=== PATIENT | male | born 1960 | race Caucasian/White ===

== ENCOUNTER 2023-03-21 06:31 | Inpatient (IN) | payer OTHER ==
[2023-03-21] VITALS (481 sets, daily range): BP systolic 113–141; BP diastolic 71–99; PULSE 82–97; TEMP 97.5–98.2; O2SAT 89–100
[~2023-03-21] VITALS: Ht 177.8 cm; Wt 55.6 kg
--- NOTE | 2023-03-21 09:12 | NUR ---
PT TO THE UNIT AT 0912 FROM [facility]. ALERT AND ORIENTED. IN NO ACUTE DISTRESS. ON BIPAP TOLERATION WELL. TWO PERIPHERAL IVS NOTED TO RIGHT FOREARM AND LEFT AC. PT IS PLACED ON ICU MONITORING. VSS. SWABBED FOR COVID-19. PT DENIES ANY CONCERNS ON NEEDS. EDUCATION GIVEN OPERATIONS ADMINISTRATIVE ASSISTANT LIGHT AND VISITING POLICY. HOSPITALIST NOTIFIED OF PATIENTS ARRIVAL.
[2023-03-21 09:57] LABS: ARTERIAL BLD GAS O2 SATURATION 97.8 % (92-100); ARTERIAL BLD GAS TCO2 CT 21.3; ARTERIAL BLOOD GAS BASE EXCESS -3.6 (-2-2); ARTERIAL BLOOD GAS HCO3 20.3 meq/L (22-26); ARTERIAL BLOOD GAS PCO2 33.7 mmHg (35-45); ARTERIAL BLOOD GAS PO2 86.6 mmHg (80-100)
[2023-03-21] MEDS ORDERED: BREZTRI AEROS10.7 GM IH (17:04)
[2023-03-21] MEDS ORDERED: PROAIR HFA0.09 MG/AC IH (17:05)
[2023-03-22] VITALS (1085 sets, daily range): BP systolic 106–124; BP diastolic 62–83; PULSE 65–86; TEMP 97.6–98.1; O2SAT 77–100
--- NOTE | 2023-03-22 01:15 | NUR ---
PT CALLED AND REPORTED 7-8/10 CHEST PAIN RADIATING TO RIGHT SIDE OF CHEST, AND REPORTED THAT HE WAS WHEEZING. NOTIFED ANGEL ABOUT THIS AND POSSIBLE ST ELEVATION IN PTS EKG. ALSO NOTIFIED RT. RT AND ANGEL CAME UP TO SEE PT, GOT AN EKG, BREATHING TREATMENT, AND ALSO GAVE HIM MORPHINE, NITRO, AND ASPRIN.TROPONIN AND CHEST XRAY ORDERED BY ANGEL. PT VITALS WNL. PLAN OF CARE ONGOING.
[2023-03-22 02:26] LABS: ALBUMIN 3.4 gm/dL (3.4-4.8); BILIRUBIN,TOTAL 0.9 mg/dL (0.2-1.2); CALCIUM 8.8 mg/dL (8.4-10.2); CREATININE, serum 0.78 mg/dL (0.72-1.25); TOTAL PROTEIN 6.1 gm/dL (6.2-8.1)
--- NOTE | 2023-03-22 02:28 | NUR ---
227 - PT STARTED GETTING VERY AGITATED AND SHORT OF BREATH WITH FEELINGS OF IMPENDING DOOM. PT STATED HE REFUSED TO WEAR THE BIPAP ANY LONGER AND TOOK IT OFF HIMSELF. DURING THIS TIME HIS O2 SATS DROPPED LOW 70%. HIS FACE WAS TURNING BLUE AND HE WAS REPEATING THAT HE COULD NOT BREATH. ANGEL AND RT WERE CALLED IMMEDIATELY. ANGEL CALLED OVER ER DR ORDOÑEZ TO PERFORM A CHEST TUBE DUE TO "RAPID DETERIORATION". CONSENT WAS SIGNED BY PT. ANGEL ASSISTED TIAGO WITH INSERTION OF CHEST TUBE. RT, ANESTHESIA, MYSELF, RNEETTA RUIZ, AND ASHU ESPINO RN WERE ALL IN ROOM ASSISTING. TIME OUT WAS 246- CHEST TUBE WAS PLACED BY DR ORDOÑEZ AND A CHEST XRAY WAS OBTAINED TO VERIFY PLACEMENT AT 308. DR ORDOÑEZ THEN LEFT ICU BEFORE CONNECTING CHEST TUBE TO SUCTION WELL DRESSING THE INSERTION SITE. MYSELF, MIGUEL RUIZ, AND RENETTA RUIZ ATTEMPTED TO CONNECTING THE CHEST TUBE TO SUCTION, UNSUCCESSFUL. WHEN ATTEMPTING TO CONNECT THE SUCTION THE PT FELT EXTREME PAIN AND SUCTON WAS DISCONNECTED IMMEDIATELY DUE TO THIS. ANGEL WAS THEN NOTIFIED AGAIN REGARDING THE CHEST TUBE/SUCTION. HE ADVISED SURGERY TO BE CONTACTED AT THIS POINT TO FURTHER ASSESS. DR GLASER ARRIVED AND ASSESSED THE CHEST TUBE, AND WAS ABLE TO FINISH THE PROCEDURE. PT NOW RESTING IN BED SATURATION AT 100% WHILE ON 2L OXYMASK. VITALS WNL. PLAN OF CARE ONGOING.
[2023-03-22 04:15] LABS: HEMATOCRIT 42.4 % (42.0-52.0); HEMOGLOBIN 14.9 g/dl (13.5-18.0); MEAN CELL VOLUME 97 fl (80.0-100.0); MEAN CORPUSCULAR HEMOGLOBIN 34 pg (27-31); MEAN CORPUSCULAR HGB CONC 35 g/dl (33.0-37.0); MEAN PLATELET VOLUME 10.4 fl (7.4-10.4); PLATELET COUNT 174 K/mm3 (130-400); RED BLOOD COUNT 4.37 M/mm3 (4.20-5.60)
[2023-03-22 04:39] LABS: CALCIUM 8.8 mg/dL (8.4-10.2); CREATININE, serum 0.82 mg/dL (0.72-1.25); POTASSIUM 4.4 mmol/L (3.5-4.5)
[2023-03-22 05:00] LABS: BAND 3 % (0-10); LYMPHOCYTE 1 % (20.0-51.0); NEUTROPHILS 94 % (42.0-75.2); PLATELET ESTIMATE NORMAL (NORMAL)
[2023-03-22 05:52] LABS: ARTERIAL BLD GAS O2 SATURATION 94.3 % (92-100); ARTERIAL BLD GAS TCO2 CT 19.3; ARTERIAL BLOOD GAS BASE EXCESS -2.8 (-2-2); ARTERIAL BLOOD GAS HCO3 20.9 meq/L (22-26); ARTERIAL BLOOD GAS PCO2 33.4 mmHg (35-45); ARTERIAL BLOOD GAS PO2 70.4 mmHg (80-100); ARTERIAL BLOOD GAS pH 7.41 (7.35-7.45)
--- NOTE | 2023-03-22 07:10 | NUR ---
BEDSIDE REPORT RECEIVED FROM SARA GLEASON. RIGHT CHEST TUBE IN PLACE AND TO SUCTION; NO BUBBLING PRESENT IN ATRIUM, MINIMAL TIDALING WITH DEEP BREATH AND COUGH. PT REPORTS MINIMAL PAIN AT THIS TIME; DOES NOT WANT ANYTHING FOR PAIN. VITAL SIGNS STABLE. PT ALERT AND ORIENTED AND OFFERS NO COMPLAINTS.
--- NOTE | 2023-03-22 08:36 | NUR ---
Pt taken to CT for CT Chest w/ contrast; accompanied by this nurse and photo specialist. Pt remained stable throughout scan. Pt returned to room at 0845. Pt c/o pain at chest tube site rated 7/10. PRN morphine and tylenol to be given.
[2023-03-22 10:24] LABS: CHOLESTEROL RISK RATIO 1.7
[2023-03-22 10:29] LABS: TROPONIN-I 0.647 ng/mL (0.00-0.033)
[2023-03-22] MEDS ORDERED: LEADER EYE ITCH5 ML OP (11:17)
--- NOTE | 2023-03-22 11:54 | NUR ---
PAPER GLUING OPERATOR reviewed pt's clinical record and noted he was initally admitted for SOB. PAPER GLUING OPERATOR met with pt @ his bedside this morning to complete intake. Pt appeared frail, but he was oriented to person, time, place and situation. He reports he lives with his daughter, Mehreen Solis in [place]. 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 Pt states his daughter is his HCPOA, and she can be reached @ # [phone]. Pt, an army explained his HCPOA was implemented at the [place], and he has a copy @ [place]. When asked the name of his VA provider, he stated he couldn't remember, explaining he sees a different one every time he goes in for an appt. Pt states the [place] pays for his meds and he fills them @ [facility]. Pt also has a h/o alcohol use, admitting he drinks 4-8 beers almost daily. He denies h/o DT's, blackouts and DWI's. He denies using any street drugs. Pt stated he has never participated in any [facility] tx programs, stating he drinks beer to relax. Pt anticipates he will be discharge home once he is medically clear. Pt's daughter will provide transportation.
--- NOTE | 2023-03-22 12:57 | NUR ---
Pt assisted with washing hair and body, changing gown, and putting on brief and sweatpants. Pt was able to do majority of ADL's; this nurse just assisted providing supplies and set-up. Pt assisted to toilet to have BM and void; then assisted to recliner to sit up and eat lunch. Pt tolerated all activities well and vitals remained WNL.
--- NOTE | 2023-03-22 14:05 | NUR ---
Pulmonary Rehab Note: Met with patient at bedside to discuss outpatient pulmonary rehab program. Patient meets criteria with qualifying diagnosis of COPD. Discussed program goals, session lengths, insurance coverage, meeting with respiratory therapist and fabrics and material cutter, exercise, and education provided. Patient is interested, however, he works 70+ hours per week as a local [employer] ([employer] Discussed COPD zones and when to call the doctor and/or 911/ER. Plan to follow up with patient Saturday or will call when he discharges. Phone number verified: [phone].
[2023-03-22 16:50] LABS: PROTHROMBIN TIME 10.7 SECONDS (9.7-12.8)
[2023-03-22 20:50] LABS: COLLECTION METHOD CLEAN CATCH
[2023-03-22 21:02] LABS: PH 6.5 (5.0-8.5); URINE APPEARANCE Clear (CLEAR/HAZY); URINE BLOOD Negative (NEGATIVE); URINE COLOR Yellow (YELLOW); URINE GLUCOSE Negative (NEGATIVE); URINE KETONE 2+ (NEGATIVE); URINE NITRATE Negative (NEGATIVE); URINE PROTEIN(semi-quant) Negative (NEGATIVE); URINE UROBILINOGEN 0.2 E.U/dL (0.2-1.0)
[2023-03-22 21:15] LABS: SQUAMOUS EPITHELIAL 0-2 /hpf (0-10); URINE RBC 0-2 /hpf (0-2); URINE WBC 0-2 /hpf (0-2)
[2023-03-22 21:35] LABS: TRICYCLIC ANTIDEPRESS URINE NEGATIVE
[2023-03-23] VITALS (702 sets, daily range): BP systolic 103–155; BP diastolic 63–94; PULSE 62–107; TEMP 97.9–98.4; O2SAT 77–100
[2023-03-23 04:46] LABS: HEMATOCRIT 37.5 % (42.0-52.0); HEMOGLOBIN 13.3 g/dl (13.5-18.0); MEAN CELL VOLUME 95 fl (80.0-100.0); MEAN CORPUSCULAR HEMOGLOBIN 34 pg (27-31); MEAN CORPUSCULAR HGB CONC 36 g/dl (33.0-37.0); MEAN PLATELET VOLUME 10.3 fl (7.4-10.4); PLATELET COUNT 147 K/mm3 (130-400); RED BLOOD COUNT 3.93 M/mm3 (4.20-5.60); REDCELL DISTRIBUTION WIDTH-CV 12.8 % (11.5-14.5)
--- NOTE | 2023-03-23 05:00 | NUR ---
PT HAS HAD UNEVENTFUL NIGHT. ABLE TO SLEEP SOME. PT PLACED ON O2 1L VIA NASAL CANULA FOR SLEEP. CHEST TUBE INTACT TO R SIDE, SET TO 20MMHG SUCTION, WATER SEAL. SCANT RED TINGED DRAINAGE. LUNG SOUNDS DIMINISHED EQUALLY BILATERALY, PT REPORTS BREATHING WELL. SOME DYSPNEA NOTED WITH EXERTION OF GETTING UP TO USE TOILET IN ROOM. PT REPORTS HAVING A LOOSE STOOL THIS SHIFT, HAS HAPPENED AT HOME RECENTLY WELL. NO C/O PAIN.
[2023-03-23 05:31] LABS: CALCIUM 8.1 mg/dL (8.4-10.2); CREATININE, serum 0.75 mg/dL (0.72-1.25)
[2023-03-23 06:26] LABS: BAND 5 % (0-10); NEUTROPHILS 93 % (42.0-75.2); PLATELET ESTIMATE NORMAL (NORMAL)
--- NOTE | 2023-03-23 08:37 | NUR ---
PT STABLE ON ROUNDS. NO SIGN OF DISTRESS. DENIES NEEDS AT THIS TIME.
--- NOTE | 2023-03-23 10:18 | NUR ---
Hosiery Looper AM Rounds: Hosiery Looper visit attempted; Doctor was with Patient.
--- NOTE | 2023-03-23 12:30 | NUR ---
REPORT RECEIVED FROM SARA STOREY IN ICU
--- NOTE | 2023-03-23 12:40 | NUR ---
REPORT CALLED TO NURSE VICTORAINO. PT IS TO BE TRANSFERED TO ROOM 352 VIA WHEELCHAIR ACCOMPANIED BY STAFF. PT IS AWARE HE IS GOING TO BE TRANSFERRED TO THE MEDICAL FLOOR. PT IS ALERT & ORIENTED. NO SIGN OF DISTRESS AT THIS TIME STABLE AT THIS TIME.
--- NOTE | 2023-03-23 13:20 | NUR ---
PT ON THE FLOOR FROM ICU APPROX 1320 VIA WHEELCHAIR ESCORTED BY SARA STOREY. PT ORIENTED TO ROOM, ASSESSMENT DONE. PT A&OX4, LUNGS DIMINISHED IN ALL HENRIQUEZ, DENIES PAIN AT THIS TIME. RIGHT CHEST TUBE IN PLACE DRAINING DEPENDENTLY, DRESSING IS CLEAN DRY AND INTACT, SKIN AROUND CHEST TUBE SITE IS SOFT WITH NO ABNORMALITIES. PT DENIES NEEDS AT THIS TIME AND IS SITTING ON SIDE OF BED EATING LUNCH. BED IN LOWEST POSITION, CALL LIGHT IN REACH, BED ALARM ON
--- NOTE | 2023-03-23 17:10 | NUR ---
PT CONNECTED TO LOW INTERMITTENT SUCTION AT 20 MMHG, SKIN AROUND CHEST TUBE INSERTION SITE IS SOFT WITH NO ABNORMALITIES. PT DENIES PAIN OR DISCOMFORT AT THIS TIME. DR ARCE CALLED AND UPDATED ON SUCTION BEING REAPPLIED AT THIS TIME, DENIES NEED FOR CHEST XRAY CURRENTLY AND OKAY WITH SCHEDULED CHEST XRAY ON 03/24.
--- NOTE | 2023-03-23 17:53 | NUR ---
PT REPORTS RIGHT SIDED UPPER BACK PAIN RATING IT 5/10. SKIN ON BACK AND AROUND CHEST TUBE SITE SOFT WITH NO ABNORMALITIES NOTED. PT DENIES FURTHER NEEDS AT THIS TIME.
[2023-03-23] MEDS ORDERED: REFRESH 1 ML1 ML OP (21:34)
[2023-03-24] VITALS (8 sets, daily range): BP systolic 114–150; BP diastolic 59–80; PULSE 57–77; TEMP 97.9–98.2
--- NOTE | 2023-03-24 04:34 | NUR ---
NURSING SHIFT ASSESSMENT COMPLETED. THE PATIENT WAS ALERT AND ORIENTED. THE PATIENTS RIGHT CHEST TUBE WAS INTACT WITH A CLEAN DRESSING. THE CHEST TUBE HAD SOME GENTLE BUBBLING UPON INSPIRATION. A VERY SMALL AMOUNT OF SEROSANGUINEOUS OUTPUT NOTED. THE PATIENT DENIES PAIN OR DISCOMFORT. THE CHEST TUBE IS TO NEGATIVE 20CM OF SUCTION. THE PLAN OF CARE AND EVENING MEDICATIONS WERE REVIEWED. QUESTIONS AND CONCERNS ANSWERED. CALL LIGHT AND PERSONAL BELONGINGS WITHIN REACH. BED IN LOW POSITION.
[2023-03-24 07:06] LABS: HEMATOCRIT 37.2 % (42.0-52.0); HEMOGLOBIN 13.2 g/dl (13.5-18.0); MEAN CELL VOLUME 96 fl (80.0-100.0); MEAN CORPUSCULAR HEMOGLOBIN 34 pg (27-31); MEAN CORPUSCULAR HGB CONC 36 g/dl (33.0-37.0); MEAN PLATELET VOLUME 10.9 fl (7.4-10.4); PLATELET COUNT 142 K/mm3 (130-400); RED BLOOD COUNT 3.87 M/mm3 (4.20-5.60); REDCELL DISTRIBUTION WIDTH-CV 12.8 % (11.5-14.5)
[2023-03-24 07:18] LABS: BAND 2 % (0-10); LYMPHOCYTE 2 % (20.0-51.0); NEUTROPHILS 94 % (42.0-75.2); PLATELET ESTIMATE NORMAL (NORMAL)
[2023-03-24 07:25] LABS: CALCIUM 8.4 mg/dL (8.4-10.2); CREATININE, serum 0.69 mg/dL (0.72-1.25); POTASSIUM 3.7 mmol/L (3.5-4.5)
--- NOTE | 2023-03-24 08:14 | NUR ---
AT 0100 I CONTACTED DIONICIO SHORT TO DISCUSS THE TELE STRIP INTERPERTATION THAT LOOKED LIKE ST ELEVATION. THE PATIENT'S TROPONINS HAD ALSO BEEN ELEVATED EARLER IN THE DAY. NO EKG OR LABS WERE ORDERED. WILL CONTINUE TO MONITOR.
--- NOTE | 2023-03-24 08:30 | NUR ---
patient alert and oriented x4. patient reports no pain. patient has a chest tube to his right lateral chest. dressing in clean intact. chambers are working properly. patient laying in bed watching tv and pleasant mood. patient call light within reach.
--- NOTE | 2023-03-24 21:15 | NUR ---
Patient resting in bed. Denies any pain other than some mild pain at the chest tube insertion site. Dressing on right lateral chest appears clean, dry and intact. Chamber upright on the floor and no indications of a leak or complications. Assessment complete. PICC in right upper arm flushes easily and good blood return in both ports. Denies any needs at this time. Call light and personal items in reach. Bed in low position and bed alarm on.
[2023-03-25] VITALS (12 sets, daily range): BP systolic 100–152; BP diastolic 55–84; PULSE 53–63; TEMP 97.7–98.6
--- NOTE | 2023-03-25 06:00 | NUR ---
Patient resting in bed. Denies any pain or needs at this time. Dressing is clean, dry, and intact. Denies any needs at this time. Call light and personal items in reach. Bed in low position and bed alarm on.
[2023-03-25 06:18] LABS: HEMOGLOBIN 12.5 g/dl (13.5-18.0); MEAN CELL VOLUME 96 fl (80.0-100.0); MEAN CORPUSCULAR HEMOGLOBIN 34 pg (27-31); MEAN CORPUSCULAR HGB CONC 35 g/dl (33.0-37.0); MEAN PLATELET VOLUME 11.2 fl (7.4-10.4); PLATELET COUNT 121 K/mm3 (130-400); RED BLOOD COUNT 3.69 M/mm3 (4.20-5.60); REDCELL DISTRIBUTION WIDTH-CV 12.6 % (11.5-14.5)
[2023-03-25 06:23] LABS: HEMATOCRIT 35.3 % (42.0-52.0)
[2023-03-25 06:40] LABS: ALBUMIN 2.8 gm/dL (3.4-4.8); BILIRUBIN,TOTAL 0.4 mg/dL (0.2-1.2); CALCIUM 8.3 mg/dL (8.4-10.2); CREATININE, serum 0.76 mg/dL (0.72-1.25); MAGNESIUM 1.9 mg/dL (1.6-2.6); POTASSIUM 3.6 mmol/L (3.5-4.5); TOTAL PROTEIN 4.8 gm/dL (6.2-8.1)
--- NOTE | 2023-03-25 07:00 | NUR ---
PT RESTING IN BED. PT HAS RIGHT CT TO -20 WALL SUCTION. PT IS RA. PT IS SR ON TELE. PT IS AXOX3. PT HAS CALL LIGHT WITHIN REACH AND INSTRUCTED TO CALL WITH ALL NEEDS.
[2023-03-25 07:01] LABS: BAND 2 % (0-10); LYMPHOCYTE 3 % (20.0-51.0); NEUTROPHILS 92 % (42.0-75.2); PLATELET ESTIMATE DECREASED (NORMAL)
--- NOTE | 2023-03-25 11:43 | NUR ---
0900-NOTIFIED REGARDING CODE STATUS. CALLED AND HER RN PLUMBING DESIGNER AND MESSAGE RELAYED FOR CONSULT. 1145- NOTIFIED THAT OCCULT STOOL RESULTS WERE POSITIVE AND CODE STATUS NEEDS TO BE CHANGED.
--- NOTE | 2023-03-25 12:12 | NUR ---
CLARIFIED WITH KELLEY MUNIZ TO CONTINUE LOVENOX WITH PLATELETS AT 121.
--- NOTE | 2023-03-25 16:06 | NUR ---
Paintings Conservator collaborated with physician to assess Patient for discharge readiness. Patient is pending Pulmonary review and sign off and reports Patient has the potential to discharge tomorrow pending AM assessment and follow-up with pulmonology.
--- NOTE | 2023-03-25 20:00 | NUR ---
PATIENT IS A&O AND SITTING UP IN BED WATCHING TV. VSS ON TELE. NO COMPLAINTS. CHEST TUBE TO RIGHT FLANK AT 20 OF SUCTION. NOTED SMALL BLOODY OUTPUT IN CHEST TUBE. PATIENT HAS SOME DYSPNEA WITH ACTIVITY BUT DENIES SOA AT REST AND IS CURRENTLY ON RA WITH SATS IN MID TO UPPER 90'S. NOTED DEMINISHED LUNG HENRIQUEZ, SEE SHIFT ASSESSMENT. RIGHT PICC TO INT. SBA TO BATHROOM. HEAD TO TOE ASSESSMENT COMPLETE. HS MEDS GIVEN. NO OTHER NEEDS AT THIS TIME. CALL LIGHT IN REACH.
[2023-03-26] VITALS (7 sets, daily range): BP systolic 128–152; BP diastolic 49–86; PULSE 67–73; TEMP 97.7–99.1
[2023-03-26 06:19] LABS: BASO % 0.1 % (0.0-2.0); CALCIUM 8.1 mg/dL (8.4-10.2); CREATININE, serum 0.77 mg/dL (0.72-1.25); GRAN # 5.7 K/mm3 (1.4-6.5); GRAN % 76.3 % (42.2-75.2); HEMATOCRIT 38.9 % (42.0-52.0); HEMOGLOBIN 13.6 g/dl (13.5-18.0); MEAN CELL VOLUME 97 fl (80.0-100.0); MEAN CORPUSCULAR HEMOGLOBIN 34 pg (27-31); MEAN CORPUSCULAR HGB CONC 35 g/dl (33.0-37.0); MEAN PLATELET VOLUME 11.6 fl (7.4-10.4); MONO # 0.7 K/mm3 (0.1-0.6); MONO % 9.9 % (1.7-9.3); PLATELET COUNT 147 K/mm3 (130-400); POTASSIUM 3.4 mmol/L (3.5-4.5); RED BLOOD COUNT 4.03 M/mm3 (4.20-5.60); REDCELL DISTRIBUTION WIDTH-CV 12.7 % (11.5-14.5)
--- NOTE | 2023-03-26 07:00 | NUR ---
PT SITTING UP IN BED PLAYING CARDS. PT IS ON RA. PT IS SR ON TELE. PT HAS RIGHT CHEST TUBE TO -20 WALL SUCTION, FLUCUATION SEEN BUT NO BUBBLE. PT IS AXOX3 AND HAS THE CALL LIGHT WITHIN REACH. PT INSTRUCTED TO CALL WITH ALL NEEDS.
[2023-03-26] MEDS ORDERED: LIPITOR 80MG80 MG PO (08:12)
[2023-03-26] MEDS ORDERED: LOPRESSOR 225 MG/TAB PO (08:13)
[2023-03-26] MEDS ORDERED: NITROSTAT0.4 MG/TAB SL (08:13)
[2023-03-26] MEDS ORDERED: ASPIRIN E.C. 8181 MG PO (08:13)
[2023-03-26] MEDS ORDERED: THIAMINE 1100 MG/TAB PO (08:14)
[2023-03-26] MEDS ORDERED: FOLIC ACID 11 MG/TA1 PO (08:14)
[2023-03-26] MEDS ORDERED: MULTI VITAMINS1 TAB PO (08:14)
[2023-03-26] MEDS ORDERED: PREDNISONE20 MG PO (08:27)
--- NOTE | 2023-03-26 15:55 | NUR ---
Paste Thinner met with Patient to discuss discharge planning. Patient inquires about transportation. SW collaborated with Patient to develop the plan of requesting a ride from his daughter after a dentist appointment. Per Nurse, Patient's daughter contacted a family member that works at [employer] who has agreed to transport Patient home. SW completed [place] request for service form for Patient's need of Pulmonology and Cardiology follow-upps and [facility] to [facility]. LUANN attempted to contact LUANN George with [facility] to provide update and left voicemail.
--- NOTE | 2023-03-26 16:10 | NUR ---
PT WHEELED OUT BY CATHRYN HUTSON. PT HAS PAPERWORK.
--- NOTE | 2023-03-28 08:14 | NUR ---
Senior Business Objects Developer contacted Doris with the [facility] on 03-27-23 to follow-up on Patient's VA authorization for cardiology and pulmonology. Doris agrees to find out if the [facility] Pulmonology provider will follow-up with Patient or refer to community care through Dr. Price in [place], [place]. Doris states that she will do the samem for cardiology through Dr. Haque in [place], [place].
== END 2023-03-26 16:10 | disposition home or self-care (01) | DRG 189 ==
LOC: IMCU 06:31 → MEDICAL 09:22 → ICU 09:22 → MEDICAL 03-23 13:30
PROVIDERS: Internal Medicine; Internal Medicine Pulmonary Disease; Nurse Practitioner; Physician Assistant; ADMIT Internal Medicine
PROC: 02HV33Z Insertion of Infusion Device into Superior Vena Cava, Percutaneous Approach (ICD-10-PCS; principal; 2023-03-21)
PROC: 5A09357 Assistance with Respiratory Ventilation, Less than 24 Consecutive Hours, Continuous Positive Airway Pressure (ICD-10-PCS; 2023-03-21)
PROC: 0W9930Z Drainage of Right Pleural Cavity with Drainage Device, Percutaneous Approach (ICD-10-PCS; 2023-03-22)
DX: J96.01 Acute respiratory failure with hypoxia (principal); E43 Unspecified severe protein-calorie malnutrition; I21.A1 Myocardial infarction type 2; J44.1 Chronic obstructive pulmonary disease with (acute) exacerbation; E87.20 Acidosis, unspecified; J93.12 Secondary spontaneous pneumothorax; Z68.1 Body mass index [BMI] 19.9 or less, adult; R91.8 Other nonspecific abnormal finding of lung field; Z20.822 Contact with and (suspected) exposure to COVID-19; J96.02 Acute respiratory failure with hypercapnia; Z90.49 Acquired absence of other specified parts of digestive tract; Z87.891 Personal history of nicotine dependence; Z99.89 Dependence on other enabling machines and devices
CPT/HCPCS: C1751; C9113; J0696; J1650; J2270; J2920; Q9967

== ENCOUNTER 2023-07-02 16:25 | Outpatient (RCR) | payer OTHER ==
[~2023-07-02 16:25] MED LIST: ASPIRIN E.C. 8181 MG PO; BREZTRI AEROS10.7 GM IH; FOLIC ACID 11 MG/TA1 PO; LEADER EYE ITCH5 ML OP; LIPITOR 80MG80 MG PO; LOPRESSOR 225 MG/TAB PO; MULTI VITAMINS1 TAB PO; NITROSTAT0.4 MG/TAB SL; PREDNISONE20 MG PO; PROAIR HFA0.09 MG/AC IH; REFRESH 1 ML1 ML OP; THIAMINE 1100 MG/TAB PO
== END 2023-07-03 | disposition home or self-care (01) ==
LOC: COL.CR
DX: J44.9 Chronic obstructive pulmonary disease, unspecified (principal); Z79.51 Long term (current) use of inhaled steroids